=== PATIENT | male | born 1955 | race Caucasian/White ===

== ENCOUNTER → 2017-03-04 | Outpatient (CLI) | payer BC ==
[2016-06-13 17:28] VITALS: BP 188/92
--- NOTE | 2017-03-05 12:06 | RAD ---
HISTORY: Left knee pain. Patient states tendon and ligament injury about 4 years ago. Re-injured tejinder duran. Study: Three-view left knee Comparison: No priors Findings: Mild degenerative changes are present with peaking of tibial spines and marginal osteophyte formation of the medial joint space compartment and patella. No fracture or dislocation is seen. There is no e vidence of joint effusion. IMPRESSION: Mild degenerative changes of the left knee without acute abnormality. Reported By:
== END | disposition home or self-care (01) ==
LOC: RAD 09:29
PROVIDERS: ATTEND Nurse Practitioner Family
DX: M25.562 Pain in left knee (principal); M23.8X2 Other internal derangements of left knee
CPT/HCPCS: 73564